=== PATIENT | male | born 1995 | race African-American/Black ===

== ENCOUNTER 2022-12-07 15:23 | Emergency (ER) | payer SELFPAY ==
--- NOTE | 2022-12-07 15:33 | ED.SKABFB ---
HPI - Skin/Abscess/Foreign Bdy General Chief complaint: Skin/Abscess/Foreign Body Stated complaint: Insect Bite Time Seen by Provider: 12/07/22 15:33 Source: patient Mode of arrival: ambulatory Limitations: no limitations History of Present Illness HPI narrative: Mr. Martin is a 27-year-old male patient presenting to the clinic today with complaints of a possible insect bite. He reports he had a insect bite him approximately 3 days ago while he was at work. Does not know what type of insect bit him however he now thinks that it is infected. Patient thinks it is suspicious for a spider bite. States that the area is very itchy it is blistered and is draining some yellowish discharge Related Data Allergies Allergy/AdvReac Type Severity Reaction Status Date / Time No Known Allergies Allergy Mild Verified 12/07/22 15:42 Review of Systems Review of Systems: Pertinent positives per HPI. Patient denies any fever, chills, headache, visual changes, dizziness, cough, runny nose, sore throat, shortness of breath, chest pain, palpitations, nausea, vomiting, diarrhea, constipation, abdominal pain, or any urinary issues. PMFSH Comments At the time of my signature, I reviewed and agree with the nursing past medical, surgical, social, and family history. There is no relevant family history pertinent to the patient complaint. Exam Narrative: General: Well-developed, well nourished, in no apparent distress Head: Normocephalic, atraumatic. Cardio: Regular rate and rhythm, s1 and s2 normal, no murmur appreciated. Resp: Clear to auscultation bilaterally, no rhonchi, rales, wheezing or rubs. Integumentary: [place], warm, and dry, intact without lesion, mild tenderness to palpation with induration to the left posterior distal upper arm-induration measuring approximately 2 x 3 with yellow purulent drainage coming from the wound. Course Course Emergency Course: Portions of this record may have been created with voice recognition software. Level of Care: Express Care Visit Vital Signs Vital signs: Vital signs reviewed MDM - Skin/Abscess/Foreign Bdy MDM Narrative Medical decision making narrative: At the time of visit patient is resting comfortably on the exam table. I suspect patient has an infected insect bite to the back of his left upper arm. Prescription for doxycycline and triamcinolone cream was sent to the pharmacy. Supportive measures were discussed with the patient he voiced understanding of discharge instructions and agrees to treatment plan. Differential Diagnosis Differential diagnosis: Likely abscess of skin or subcutaneous tissue, herpes zoster, cellulitis, insect bites and contact dermatitis Discharge Plan Discharge Clinical Impression: Infected insect bite Qualifiers: Encounter type: initial encounter Qualified Code(s): W57.XXXA - Bitten or stung by nonvenomous insect and other nonvenomous arthropods, initial encounter Patient Disposition: Home, Self-Care Condition: Stable Instructions: Antibiotic Form, Insect Bite or Sting (ED) Additional Instructions: Wash the area daily with soap and water Apply triamcinolone cream to the affected area twice daily as directed Take doxycycline as prescribed May take Tylenol/Motrin as needed for pain or fever Follow-up with your doctor in 3-5 days if symptoms persist or sooner if they worsen Go to the emergency room if you develop high fever not controlled by Tylenol Motrin, worsening of pain, worsening with swelling, weakness, lethargy, chest pain, or shortness of breath. Prescriptions: New doxycycline hyclate 100 mg capsule 100 mg PO BID 7 Days Qty: 14 0RF triamcinolone acetonide 0.1 % cream 1 applic topical BID 7 Days Qty: 30 0RF Follow-up/Referrals: PHYSICIAN,PAINT TECHNICIAN [Primary Care Provider] - Time of Disposition: 15:42 Quality NIHSS Nursing Documentation ED NIHSS nursing documentation: reviewed/agree
[2022-12-07 15:35] VITALS: BP 144/77; PULSE 81; RESP 12; TEMP 36.6; O2SAT 99
[2022-12-07 15:42] VITALS: BP 144/77; PULSE 81; RESP 12; TEMP 36.6; O2SAT 99
== END 2022-12-07 15:53 | disposition home or self-care (01) ==
PROVIDERS: Emergency Provider Nurse Practitioner Family
DX: S40.862A Insect bite (nonvenomous) of left upper arm, initial encounter (principal); W57.XXXA Bitten or stung by nonvenomous insect and other nonvenomous arthropods, initial encounter
CPT/HCPCS: 99213; G0463